=== PATIENT | male | born 1970 | race Caucasian/White ===

== ENCOUNTER 2021-09-03 11:35 | Emergency (ER) | payer OTHER, SELFPAY ==
[2021-09-03 11:37] VITALS: BP 149/84; PULSE 69; RESP 18; TEMP 36.8; O2SAT 98; BMI 20.5
[2021-09-03 12:16] LABS: Microscopic, Urine URINE MICROSCOPIC (MICROSCOPIC)
[2021-09-03 12:18] LABS: Basophils # 0.2 K/mm3 (0-0.2); Eosinophils # 0.2 K/mm3 (0.0-0.4); Eosinophils % 1.3 % (0.1-12.0); Hematocrit 43.8 % (42.0-52.0); Hemoglobin 13.8 g/dL (14.1-18.0); Lymphocytes # 2.4 K/mm3 (0.7-4.5); Lymphocytes % 15.8 % (10-50); Mean Corpuscular HGB Conc 31.6 g/dL (31.8-35.4); Mean Corpuscular Hemoglobin 32.5 pg (27.0-31.2); Mean Corpuscular Volume 102.7 fl (80-94); Mean Platelet Volume 7.7 fl (7.4-10.4); Monocytes # 0.4 K/mm3 (0.1-1.0); Monocytes % 2.5 % (1.7-9.3); Neutrophils # 12.2 K/mm3 (1.8-7.8); Neutrophils % 79.4 % (37.0-80.0); Platelet Count 402 K/mm3 (142-424); Red Blood Count 4.26 M/mm3 (4.60-6.20); Red Cell Distribution Width 13.4 % (11.5-17.5); White Blood Count 15.4 K/mm3 (4.8-10.8)
[2021-09-03 12:21] LABS: Chloride 106 mmol/L (98-107); Potassium 3.6 mmoL/L (3.5-5.1); Sodium 140 mmol/L (136-145)
[2021-09-03 12:23] LABS: Blood Urea Nitrogen 13 mg/dl (9-20); Creatinine Clearance Estimated 83 mL/min (50-200); Estimated Glomerular Filt Rate 89 ml/min (>60); GFR (African American) 107 ML/MIN (>60)
[2021-09-03 12:24] LABS: Alanine Aminotransferase 24 U/L (12-78); Albumin Level 4.3 g/dl (3.5-5.0); Albumin/Globulin Ratio 1.5 (1.1-1.8); Alkaline Phosphatase 67 U/L (38-126); Anion Gap 11.6 mEq/L (5-15); Aspartate Amino Transferase 28 U/L (17-59); Bilirubin,Total 0.4 mg/dl (0.2-1.3); Calcium 8.1 mg/dl (8.4-10.2); Carbon Dioxide 26 mmol/L (22.0-30.0); Globulin 2.8 g/dL (1.3-3.2); Glucose 136 mg/dl (74-100); Total Protein,Serum 7.1 g/dl (6.3-8.2)
[2021-09-03 12:28] LABS: Appearance,Urine CLEAR (Clear); Bilirubin,Urine Negative (Negative); Blood, Urine Negative (Negative); Color,Urine YELLOW (Yellow); Glucose,Urine (UA) Negative (Negative); Ketones,Urine Negative (Negative); Leukocyte Esterase,Urine Negative (Negative); Nitrate,Urine Negative (Negative); Protein,Urine Negative (Negative); Specific Gravity, Urine <= 1.005 (1.005-1.030); Urobilinogen,Urine 0.2 EU/dl (0.2)
[2021-09-03 12:43] LABS: MANUAL DIFFERENTIAL MANUAL DIFFERENTIAL (MANUAL DIFF)
--- NOTE | 2021-09-03 13:54 | US_ITS ---
FINAL REPORT CLINICAL HISTORY: abd pain; exam limited due to patient not NPO, [place] at [facility] [place] [facility] 3.5 hours before exam FINDINGS: ULTRASOUND RIGHT UPPER QUADRANT Sonographic imaging of the right upper quadrant was obtained. Note is made that the patient was not NPO and ate 3 in a half hour prior to the exam. The pancreas is partially obscured. The liver is unremarkable. There is no evidence of gallstones. There gallbladder wall measures at the upper limits of normal but is likely accentuated due to an incompletely distended gallbladder. There is no biliary ductal dilatation. The common duct is normal at 1 mm. Limited images of the right kidney are unremarkable. IMPRESSION: Gallbladder wall is at the upper limits of normal which is likely accentuated due to incomplete distention of the gallbladder. Reviewed, Interpreted and Dictated by Jakob Clinton MD Transcribed by Jennifer Hendrickson Authenticated by Jakob Clinton MD on 09/03/2021 04:26:51 PM [facility]
--- NOTE | 2021-09-03 13:58 | PC.NURSE ---
Notified Rad of RUQ U/S order
--- NOTE | 2021-09-03 14:08 | PC.NURSE ---
patient to radiology with polytechnic registrar
--- NOTE | 2021-09-03 15:40 | PC.NURSE ---
ED MD at for update on POC
[2021-09-03 15:45] LABS: Eosinophils % 2 % (0-3); Lymphocytes % 16 % (10-50); Macrocytosis 1+; Monocytes % 4 % (2-9); Neutrophils % 78 % (42-76); Platelet Estimate Normal; Total Cells Counted 100
--- NOTE | 2021-09-03 15:52 | HMH.EDGENADL ---
ED Disposition Clinical Impression: Epigastric abdominal pain Disposition: Home, Self-Care Condition on Discharge: Good Instructions: DI for Acute Abdominal Pain Prescriptions: Sucralfate [Carafate 1gm/10mL Susp] 10 ml PO ACHS #500 ml Transmission Status: Received by [facility] Omeprazole [Omeprazole 40mg Capsule] 40 mg PO DAILY #30 cap Transmission Status: Received by [facility] Ondansetron [Zofran 4mg ODT] 4 mg PO TIDP PRN #12 tab PRN Reason: Nausea And Vomiting Transmission Status: Received by [facility] Referrals: Cameron Treadwell MD [Primary Care Provider] - Forms: Work/School Release - Critical Care Critical Care Time: No Attestation: On 09/03/21, the high probability of a clinically significant, sudden or life threatening deterioration of the following system(s) required my full and direct attention, intervention and personal management. The time I documented below is in addition to time spent performing reported procedures but includes the following listed in this critical care notation. Medical Decision Making - Rizwan Inquiry Pt receiving controlled substance: No Vital Signs: 09/03/21 11:37 09/03/21 16:09 Temperature 98.3 F 98.3 F Temperature Source Oral Pulse Rate 79 Pulse Rate [Left Radial] 69 Respiratory Rate 18 18 Blood Pressure 127/84 Blood Pressure [Left Arm] 149/84 H Blood Pressure Mean [Left Arm] 105 Blood Pressure Source [Left Arm] Automatic Cuff Blood Pressure Position [Left Arm] Sitting 02 Sat by Pulse Oximetry 98 Oxygen Delivery Method Room Air - Lab Data Lab Results 09/03/21 12:03: Urine Color Yellow, Urine Appearance Clear, Urine pH 6.0, Ur Specific [place] <= 1.005, Urine Protein Negative, Urine Glucose (UA) Negative, Urine Ketones Negative, Urine Blood Negative, Urine Nitrate Negative, Urine Bilirubin Negative, Urine Urobilinogen 0.2, Ur Leukocyte Esterase Negative, Urine RBC None, Urine WBC None, Ur Squamous Epith Cells None, Urine Bacteria None 09/03/21 12:10: WBC 15.4 H, RBC 4.26 L, Hgb 13.8 L, Hct 43.8, MCV 102.7 H, MCH 32.5 H, MCHC 31.6 L, RDW 13.4, Plt Count 402, MPV 7.7, Neut % (Auto) 79.4, Lymph % (Auto) 15.8, Sutton % (Auto) 2.5, Eos % (Auto) 1.3, Baso % (Auto) 1.0, Neut # (Auto) 12.2 H, Lymph # (Auto) 2.4, Sutton # (Auto) 0.4, Eos # (Auto) 0.2, Baso # (Auto) 0.2, Total Counted 100, Neutrophils % (Manual) 78 H, Lymphocytes % (Manual) 16, Monocytes % (Manual) 4, Eosinophils % (Manual) 2, Platelet Estimate Normal, Macrocytosis 1+ 09/03/21 12:10: Sodium 140, Potassium 3.6, Chloride 106, Carbon Dioxide 26, Anion Gap 11.6, BUN 13, Creatinine 0.90, Estimated Creat Clear 83, Estimated GFR 89, Est GFR ( Amer) 107, Glucose 136 H, Calcium 8.1 L, Total Bilirubin 0.4, AST 28, ALT 24, Alkaline Phosphatase 67, Total Protein 7.1, Albumin 4.3, Globulin 2.8, Albumin/Globulin Ratio 1.5 Result diagrams: 09/03/21 12:10 09/03/21 12:10 Orders (Tests/Meds): ED MEDICATIONS Discontinued Medications Generic Name Dose Route Start Last Admin Trade Name Freq PRN Reason Stop Dose Admin Belladonna Alkaloids 60 ml 09/03/21 13:55 09/03/21 13:59 Gi Cocktail 60ml Udc PO 09/03/21 13:56 60 ml ONCE ONE Administration Sodium Chloride 10 ml 09/03/21 12:02 Sodium Chloride 0.9% 10ml Flush Syringe IV 10/03/21 12:01 NEEDED PRN Maintain IV Site Medical Decision Narrative: Patient is a 51-year-old male with history of kidney stones presents the ED today for epigastric right upper quadrant vomiting. Patient is well-appearing on initial evaluation, no acute distress, vital signs within normal limits and stable. We have ordered right upper quadrant ultrasound for further evaluation, although patient symptoms are reflux-like in nature, with this burning epigastric pain. Patient not endorsing any other significant symptoms of chest pain or shortness of breath at this time. We will further work-up with CBC CMP as well.
--- NOTE | 2021-09-03 15:57 | PC.NURSE ---
ED MD at for update on POC
[2021-09-03 16:09] VITALS: BP 127/84; PULSE 79; RESP 18; TEMP 36.8; O2SAT 98
== END 2021-09-03 16:10 | disposition home or self-care (01) ==
PROVIDERS: Emergency Provider Student in an Organized Health Care Education/Training Program; PCP Emergency Medicine
DX: R10.13 Epigastric pain (principal); R10.11 Right upper quadrant pain; F17.210 Nicotine dependence, cigarettes, uncomplicated
CPT/HCPCS: 76705; 80053; 81001; 85007; 85025; 99284

== ENCOUNTER → 2021-10-08 08:28 | Outpatient (CLI) | payer OTHER, SELFPAY ==
--- NOTE | 2021-10-08 08:29 | US_ITS ---
FINAL REPORT CLINICAL HISTORY: abd pain COMPARISON: September 03, 2021 FINDINGS: ULTRASOUND RIGHT UPPER QUADRANT Sonographic imaging of the right upper quadrant was obtained. The pancreas is partially obscured. The liver is unremarkable. There is no evidence of gallstones. There is no gallbladder wall thickening. There is no biliary ductal dilatation. The common duct is normal at 2 mm. There are 2 simple cysts within the right kidney measuring up to 2.1 cm. IMPRESSION: 2 right renal cysts. Otherwise unremarkable exam. Reviewed, Interpreted and Dictated by Jakob Clinton MD Transcribed by Jennifer Hendrickson Authenticated by Jakob Clinton MD on 10/08/2021 10:31:45 AM [facility]
== END ==
PROVIDERS: PCP Emergency Medicine; Visit Provider Nurse Practitioner Family
DX: R10.13 Epigastric pain (principal)
CPT/HCPCS: 76705

== ENCOUNTER → 2021-10-15 15:57 | Outpatient (CLI) | payer OTHER, SELFPAY | PROVIDERS: Visit Provider Internal Medicine | DX: Z01.812 Encounter for preprocedural laboratory examination (principal); Z11.52 Encounter for screening for COVID-19 | CPT/HCPCS: C9803; U0003; U0005 ==

== ENCOUNTER 2021-10-17 09:05 | Day surgery (SDC) | payer OTHER, SELFPAY ==
[2021-10-15 09:23] VITALS: BMI 20.5
[2021-10-17 09:35] VITALS: BP 136/93; PULSE 68; RESP 18; TEMP 36.6; O2SAT 98
[2021-10-17 10:48] VITALS: O2SAT 98
--- NOTE | 2021-10-17 10:55 | HMH.SCOPE ---
- Procedure: Date: 10/17/21 Patient Date of :: 1970 Procedure Performed:: EGD Indications:: The patient is a 51 year old with abdominal pain. RUQ ultrasound showed normal appearing gallbladder. The patient reports resolution of abdominal pain symptom. Performing Provider:: Anthony Mckinney MD Referring Provider:: Cameron Treadwell MD Sedation:: See RN notes Procedure:: The gastroscope was gently passed through the incisoral orifice into the oral cavity and under direct visualization the esophagus was intubated. The endoscope was passed down the esophagus, through the stomach, and into the duodenum. Color, texture, mucosa, and anatomy of the esophagus, stomach, and duodenum were carefully examined with the scope. Findings:: Oropharynx: normal Esophagus: LA Class A esophagitis of distal esophagus. Few small white mucosal lesions of mid esophagus that mostly irrigated off. Biopsies obtained in distal and mid esophagus EG Junction: measured at 40 cm Cardia: normal Fundus: normal Body: Minimal gastritis. Biopsy obtained Antrum: Minimal gastritis. Biopsy obtained Duodenal bulb: normal Duodenum (second and third portion): normal Recommendations:: Await pathology results Recommend prilosec 20 mg once daily for 8 weeks, then take as needed Complications:: None Estimated blood obtained (mL): 0
[2021-10-17 10:58] VITALS: BP 125/80; PULSE 82; RESP 18; TEMP 36.4; O2SAT 89
--- NOTE | 2021-10-17 10:59 | HMH.ANESCL ---
[facility] Anesthesia Checklist - Structural Data Admitted From: Home Planned Operative Procedure/s: egd Consent for Planned Operative Procedure(s) Verified: Yes - Airway Assessment C-Spine Mobility Assessed: Yes TMJ Mobility Assessed: Yes Dentition: Poor Dentition - Neurological Assessment Level of Consciousness: Awake, Alert, Appropriate - Anesthesia Plan Anesthesia Risk discussed: Yes Anesthesia Plan: Verified ASA Class: II Anesthesia Type: [facility] History I have reviewed the patient's past medical history: Yes Medical History: Reports:: Kidney Stones Denies:: Cancer, Diabetes Mellitus Type 1, Diabetes Mellitus Type 2, Internal Pacemaker, MRSA, Seizures *Have you ever received a pneumonia vaccine?: Yes *Have you received a flu vaccine this season?: Yes Anesthesia experience/problems:: none Other Surgeries: Yes: No Previous Surgery. No: Pacemaker Amputation: No Fractures: No - *Social History Last grade of school completed: 11th or 12th Smoking Status: Current every day smoker Tobacco Type: cigarettes # Packs/Day (cigarettes): 1 Alcohol Intake: never Substance Use Type: denies use *Occupational Status:: employed Housing: house Household Members: family *Travel in the last 8 weeks: None Family Hx:: Cancer, Asthma
[2021-10-17 11:08] VITALS: BP 114/78; PULSE 83; RESP 16; O2SAT 97
[2021-10-17 11:18] VITALS: BP 120/78; PULSE 65; RESP 16; O2SAT 98
[2021-10-17 11:28] VITALS: BP 142/63; PULSE 63; RESP 16; TEMP 36.4; O2SAT 98
== END 2021-10-17 11:35 | disposition home or self-care (01) ==
LOC: OUTP 09:07
PROVIDERS: PCP Emergency Medicine; Visit Provider Internal Medicine
PROC: 0DJ08ZZ Inspection of Upper Intestinal Tract, Via Natural or Artificial Opening Endoscopic (ICD-10-PCS; CPT 43235; principal; 2021-10-17 10:00)
DX: K20.80 Other esophagitis without bleeding (principal); K29.70 Gastritis, unspecified, without bleeding; Z87.442 Personal history of urinary calculi; Z80.9 Family history of malignant neoplasm, unspecified; Z82.5 Family history of asthma and other chronic lower respiratory diseases
CPT/HCPCS: 43239

== ENCOUNTER → 2021-11-28 09:33 | Outpatient (CLI) | payer OTHER, SELFPAY ==
--- NOTE | 2021-11-28 09:33 | NM_ITS ---
FINAL REPORT CLINICAL HISTORY: abd pain 10:30am 8.83 MCI TC CHOLETEC 1.3 MCG CCK FINDINGS: Sequential anterior projection images of the abdomen were obtained after the intravenous injection of 8.823 mCi technetium 99m Choletec. There is normal uptake of radiotracer by the liver. The bile ducts are visualized by 10 minutes. Gallbladder activity is seen by 20 minutes. Bowel activity is noted by 15 minutes. After 1 hour, 1.3 ?g of CCK was injected intravenously for calculation of gallbladder ejection fraction. The gallbladder ejection fraction is 88 %, which is within normal limits. IMPRESSION: No evidence of cystic duct or bile duct obstruction. Normal gallbladder ejection fraction of 88 %. Reviewed, Interpreted and Dictated by Christiano Sanderson III, MD Transcribed by Magdi Julian Authenticated and [facility]
--- NOTE | 2021-11-28 09:33 | CT_ITS ---
FINAL REPORT CLINICAL HISTORY: abd pain, VOMITING COMPARISON: May 20, 2017 FINDINGS: Axial CT images of the abdomen and pelvis were obtained without intravenous contrast. Coronal reformatted images were also obtained.This study was performed with techniques to keep radiation doses as low as reasonably achievable (ALARA). Individualized dose reduction techniques using automated exposure control or adjustment of mA and/or kV according to the patient's size were employed. Abdomen: The lung bases are clear. There are several less than 3 mm nonobstructing renal stones bilaterally. There are no ureteral stones. There is no hydronephrosis. The gallbladder is present. The liver, spleen and pancreas have an unremarkable, unenhanced appearance. There is a 31 mm mass in the upper pole of the left kidney. There is a 26 mm mass in the medial right kidney the previously measured 15 mm. There is a smaller mass in the lower pole the right kidney. These masses cannot be accurately characterized without contrast but may represent cysts. No inflammatory process is identified. Pelvis: Images of the pelvis reveal no evidence of ureteral dilation or ureteral stone.No mass or abnormal fluid collection is identified. The appendix is partially visualized and normal where seen. There are small bilateral inguinal hernias containing fat. There is a moderate amount of retained stool. 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 IMPRESSION: Nephrolithiasis without ureteral stone or hydronephrosis. Bilateral renal masses cannot be accurately characterized without contrast but may represent cysts. Moderate retained stool. Reviewed, Interpreted and Dictated by Christiano Sanderson III, MD Transcribed by Magdi Julian Authenticated and [facility]
--- NOTE | 2021-11-28 10:41 | HMH.ITSHM ---
Current Home Medications as stated by this patient Sandip Sauer JR or office services representative. []FAMOTIDINE
== END ==
PROVIDERS: PCP Nurse Practitioner Family; Visit Provider Nurse Practitioner Family
DX: R10.13 Epigastric pain (principal); R10.31 Right lower quadrant pain
CPT/HCPCS: 74176; 78227; A9537; J2805

== ENCOUNTER 2023-02-18 09:33 | Emergency (ER) | payer OTHER, SELFPAY ==
[2023-02-18 09:36] VITALS: BP 147/94; PULSE 66; RESP 18; TEMP 36.5; O2SAT 99; BMI 21.4
[2023-02-18 10:02] VITALS: BP 155/90; PULSE 62; RESP 18; O2SAT 98
--- NOTE | 2023-02-18 10:05 | PC.NURSE ---
Dr. Villatoro at [facility] for pt eval
--- NOTE | 2023-02-18 10:14 | HMH.EDGENADL ---
Discharge Plan Disposition Patient Disposition: Home, Self-Care Prescriptions Prescriptions: New ibuprofen 600 mg tablet 600 mg PO Q8H PRN (Reason: pain) 7 Days Qty: 21 0RF cyclobenzaprine 5 mg tablet 5 mg PO TID PRN (Reason: muscle spasm) 5 Days Qty: 15 0RF No Action prednisone 20 mg tablet 20 mg PO BID Qty: 9 0RF Rx Instructions: 1 tablet twice daily for 3 days then 1 tablet daily for 3 days acetaminophen-codeine 300-30 mg tablet 1 tab PO TID PRN (Reason: pain) Qty: 10 0RF Referrals Follow up/Referrals: Cameron Treadwell MD [Primary Care Provider] - See instructions Activity Restrictions/Add. 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 Please return with any lower extremity paralysis numbness between your legs urinary or bowel incontinence or other symptoms that we discussed. Please take it easy until your symptoms are improving. Clinical Impressions Clinical Impression: Lumbosacral strain Stand Alone Forms Stand Alone Forms: Work/School Release Instructions Patient Instructions: DI for Low Back Pain Discharge ED Provider: Mary Villatoro General Adult HPI General Chief complaint: Back Pain/Injury Stated complaint: back pain for 5 days, unknown origin, abd pain Time Seen by Provider: 02/18/23 10:04 Mode of Arrival: Ambulatory Source of Information: Patient Limitations: No Limitations Description of Symptoms (Recalled from ER Triage Doc. by RN): Patient reports that his left lower back pain down his leg. States he may have over lifted at work. History of Present Illness HPI narrative: 52-year-old male here with right lower back pain. States it is localized off to the midline of the lumbar spine just above his iliac crest. Denies any urinary or bowel incontinence any urinary retention any lower extremity paralysis any saddle anesthesia any history of cancer or drug use or fever. States he was lifting heavily recently and he feels that he strained his back. Related Data Previous Rx's Medication Instructions Recorded acetaminophen 300 mg-codeine 30 mg 1 tab PO TID PRN pain #10 tabs 07/29/22 tablet prednisone 20 mg tablet 20 mg PO BID #9 tabs 07/29/22 cyclobenzaprine 5 mg tablet 5 mg PO TID PRN muscle spasm 5 02/18/23 days #15 tabs ibuprofen 600 mg tablet 600 mg PO Q8H PRN pain 7 days #21 02/18/23 tabs Allergies Allergy/AdvReac Type Severity Reaction Status Date / Time No Known Allergies Allergy Verified 07/29/22 08:54 [facility] Disclaimer: The information contained in this section may have been updated after the patient was seen, as this information can be updated by other users. Social History Smoking Status: Current every day smoker tobacco type: cigarettes packs per day: 1 alcohol intake: never substance use type: denies use current occupational status: employed Travel in the last 8 weeks: None household members: family housing: house current occupational exposures/hazards: No caffeine: Yes ROS Obtained: Yes All systems reviewed & no additional complaints except as documented Physical Exam General General appearance: alert Respiratory Respiratory exam: Present normal lung sounds bilaterally; Absent respiratory distress Cardiovascular Cardiovascular exam: Present regular rate; Absent tachycardia Back Exam Back exam: Present tenderness (Tenderness in the right lumbosacral region off to the midline no midline tenderness no lower extremity weakness saddle anesthesia or sensory changes) Neurological Exam Neurological exam: Present alert and oriented X3 Medical Decision Making Rizwan Inquiry Pt receiving controlled substance: No Vital Signs: 02/18/23 09:36 Temperature 97.7 F Temperature Source Oral Pulse Rate [Radial] 66 Respiratory Rate 18 Blood Pressure [Right Arm] 147/94 H Blood P
[2023-02-18 10:18] VITALS: BP 155/90; PULSE 63; RESP 18; TEMP 36.7; O2SAT 99
== END 2023-02-18 10:18 | disposition home or self-care (01) ==
PROVIDERS: Emergency Provider Student in an Organized Health Care Education/Training Program; PCP Emergency Medicine
DX: S33.5XXA Sprain of ligaments of lumbar spine, initial encounter (principal); F17.210 Nicotine dependence, cigarettes, uncomplicated; X50.0XXA Overexertion from strenuous movement or load, initial encounter
CPT/HCPCS: 99283

== ENCOUNTER → 2023-03-05 01:10 | Outpatient (CLI) | payer OTHER, SELFPAY ==
[2023-03-05 19:28] LABS: Basophils % 0.3 % (0.1-2.0); Eosinophils # 0.3 K/mm3 (0.0-0.4); Eosinophils % 1.9 % (0.1-12.0); Hematocrit 43.3 % (42.0-52.0); Hemoglobin 13.4 g/dL (14.1-18.0); Lymphocytes # 2.8 K/mm3 (0.7-4.5); Lymphocytes % 21.5 % (10-50); Mean Corpuscular Hemoglobin 31.2 pg (27.0-31.2); Mean Corpuscular Volume 100.5 fl (80-94); Mean Platelet Volume 8.9 fl (7.4-10.4); Monocytes # 0.5 K/mm3 (0.1-1.0); Monocytes % 3.5 % (1.7-9.3); Neutrophils # 9.6 K/mm3 (1.8-7.8); Neutrophils % 72.8 % (37.0-80.0); Platelet Count 374 K/mm3 (142-424); Red Blood Count 4.31 M/mm3 (4.60-6.20); Red Cell Distribution Width 12.9 % (11.5-17.5); White Blood Count 13.1 K/mm3 (4.8-10.8)
[2023-03-05 19:34] LABS: Alanine Aminotransferase 16 U/L (12-78); Albumin Level 4.8 g/dl (3.5-5.0); Albumin/Globulin Ratio 1.5 (1.1-1.8); Alkaline Phosphatase 70 U/L (38-126); Anion Gap 12.2 mEq/L (5-15); Aspartate Amino Transferase 32 U/L (17-59); Bilirubin,Total 0.4 mg/dl (0.2-1.3); Blood Urea Nitrogen 14 mg/dl (9-20); Calcium 8.7 mg/dl (8.4-10.2); Carbon Dioxide 29 mmol/L (22.0-30.0); Chloride 104 mmol/L (98-107); Chol/HDL Ratio 4.6 (1-3.5); Cholesterol 214 mg/dl (140-200); Estimated Glomerular Filt Rate 78 ml/min (>60); GFR (African American) 95 ML/MIN (>60); Globulin 3.1 g/dL (1.3-3.2); Glucose 76 mg/dl (74-100); HDL Cholesterol 47 mg/dl (40-60); Lipase 73 U/L (23-300); Potassium 4.2 mmoL/L (3.5-5.1); Sodium 141 mmol/L (136-145); Total Protein,Serum 7.9 g/dl (6.3-8.2); Triglycerides 141 mg/dl (30-150); VLDL Cholesterol 28 mg/dL (0-40)
[2023-03-05 19:46] LABS: Direct LDL Cholesterol 120.84 mg/dL (100-129)
[2023-03-05 19:51] LABS: 25-OH Vitamin D, Total 43.8 ng/mL (30-100)
[2023-03-05 20:05] LABS: Prostate Specific Ag Screen 1.4 ng/ml (0.0-4.0); Thyroid Stimulating Hormone 0.77 uIU/mL (0.465-4.68)
== END ==
PROVIDERS: PCP Nurse Practitioner Family; Visit Provider Nurse Practitioner Family
DX: R10.13 Epigastric pain (principal)
CPT/HCPCS: 80053; 80061; 82306; 83690; 84443; 85025; 87086; G0103

== ENCOUNTER 2023-03-14 08:08 | Emergency (ER) | payer OTHER, SELFPAY ==
[2023-03-14 08:10] VITALS: BP 133/95; PULSE 69; RESP 19; TEMP 36.7; O2SAT 99; BMI 21.2
--- NOTE | 2023-03-14 08:31 | EXP.UTC ---
Discharge Plan Disposition Patient Disposition: Home, Self-Care Condition: Good Prescriptions Prescriptions: New oxycodone 5 mg tablet 5 mg PO Q8H PRN (Reason: pain) Qty: 10 0RF polyethylene glycol 3350 [Miralax] 17 gram/dose powder 17 g PO DAILY 30 Days Qty: 510 0RF sennosides [senna] 8.6 mg tablet 8.6 mg PO DAILY Qty: 30 0RF pantoprazole 40 mg tablet,delayed release (DR/EC) 40 mg PO DAILY Qty: 30 0RF ondansetron 4 mg tablet,disintegrating 4 mg PO Q8H Qty: 12 0RF Referrals Follow up/Referrals: Meera Park APRN [Staff Physician] - 04/10/23 4:00 pm Cameron Treadwell MD [Primary Care Provider] - See instructions Activity Restrictions/Add. Instructions Additional Instructions/Restrictions: You were evaluated in the emergency department today. Please machine pecan picker your prescriptions. The MiraLAX and senna you will take daily to help with constipation. The pantoprazole you will take daily to help with stomach acid and gastric irritation. The Zofran is for you to take as needed for nausea and vomiting. The oxycodone is for you to take as needed for severe abdominal pain. Do not drive or operate heavy machinery while taking narcotic pain medication. It is important to keep her follow-up with gastroenterology. I recommend following up with your primary care provider over the next 2 days as well. Return to the emergency department for any new or worsening symptoms, such as fevers, chills, inability to tolerate oral intake, or other concerns. Clinical Impressions Clinical Impression: Constipation, Colitis Instructions Patient Instructions: DI for Constipation, DI for Acute Abdominal Pain, DI for Colitis Discharge ED Provider: Randa Costa [facility] General Chief complaint: Abdominal Pain Stated complaint: stomach/back pain, vomiting Mode of Arrival: Ambulatory Source of Information: Patient Limitations: No Limitations Time Seen by Provider: 03/14/23 08:31 Description of Symptoms (Recalled from Triage Doc. by RN): PATIENT C/O RIGHT SIDED ABDOMINAL PAIN, NAUSEA AND VOMITING THAT HAS BEEN INTERMITTEN X 2-3 YEARS. HE STATES SYMPTOMS ARE WORSE WITH EATING AND DRINKING. REPORTS NORMAL BOWEL MOVEMENTS HEENT Symptoms (Recalled from RN notes): No Resp Symptoms (Recalled from RN notes): No Skin Symptoms (Recalled from RN notes): No MS Symptoms (Recalled from RN notes): No Functional Status (Recalled from RN notes): WNL History of Present Illness Provider Complaint: Patient states that for the last 2-3 yrs he has been having right side abdominal pain that goes into his back and will get worse after eating and make him vomit on and off that is worse at times States that he has been seen several times for it and has been seen in [place] ED, PCP and ED here and no one has found anything States that last night he was having pain again and was not able to go to work this morning States that he has been having normal bowel movements States that this has been ongoing and he thinks he needs an MRI or something to try to find out what is going on with his stomach States that last night the pain was worse and kept him up most of the night and this morning it doubled him over and this morning the pain is still bad Related Data Previous Rx's Medication Instructions Recorded ondansetron 4 mg disintegrating 4 mg PO Q8H #12 tabs 03/14/23 tablet oxycodone 5 mg tablet 5 mg PO Q8H PRN pain #10 tabs 03/14/23 pantoprazole 40 mg tablet,delayed 40 mg PO DAILY #30 tabs 03/14/23 release polyethylene glycol 3350 17 17 g PO DAILY 30 days #510 grams 03/14/23 gram/dose oral powder (Miralax) sennosides 8.6 mg tablet (senna) 8.6 mg PO DAILY #30 tabs 03/14/23 Allergies Allergy/AdvReac Type Severity Reaction Status Date / Time No Known Allergies Allergy Verified 03/05/23 13:22 Worker's Comp Is this a Worker's Comp case?: No [facility] Disclaimer: The information contained in this section may have been updated after t
--- NOTE | 2023-03-14 08:48 | PC.NURSE ---
pt arrived to room 10 from [facility]
[2023-03-14 08:51] VITALS: BP 143/86; PULSE 63; RESP 18; TEMP 36.7; O2SAT 99; BMI 21.6
--- NOTE | 2023-03-14 08:56 | CT_ITS ---
FINAL REPORT TECHNIQUE: Thin section axial images were obtained through the abdomen after intravenous contrast. Reconstruction images were obtained from the axial data. Exam was performed using dose reduction techniques. CLINICAL HISTORY: chronic R flank/RLQ pain, worse today COMPARISON: 11/28/2021 FINDINGS: The lung bases are clear. There are several subcentimeter hypodense liver lesions which have not significantly changed and are favored to represent cysts. The gallbladder is present. The spleen, adrenal glands, and pancreas are unremarkable. There are bilateral hypodense renal lesions which are stable and likely represent cysts. There is no hydronephrosis. There is a nonobstructing stone in the lower pole of the right kidney which is unchanged. Abdominal GI tract is without acute abnormality. There is no abdominal lymphadenopathy or ascites. The pelvic solid organs are unremarkable. The appendix is normal. There is mild wall thickening of the descending colon, favor incomplete distention. Mild colitis is not excluded.. There is no pelvic lymphadenopathy or ascites. No acute osseous abnormalities identified. IMPRESSION: Long segment distal colon wall thickening, favor incomplete distention. Mild colitis is not excluded. Nonobstructing right renal stone. Reviewed, Interpreted and Dictated by Karina Mccrary MD Transcribed by Shira Noble Authenticated and [facility]
--- NOTE | 2023-03-14 08:58 | HMH.EDGENADL ---
Discharge Plan Disposition Patient Disposition: Home, Self-Care Condition: Good Prescriptions Prescriptions: New oxycodone 5 mg tablet 5 mg PO Q8H PRN (Reason: pain) Qty: 10 0RF polyethylene glycol 3350 [Miralax] 17 gram/dose powder 17 g PO DAILY 30 Days Qty: 510 0RF sennosides [senna] 8.6 mg tablet 8.6 mg PO DAILY Qty: 30 0RF pantoprazole 40 mg tablet,delayed release (DR/EC) 40 mg PO DAILY Qty: 30 0RF ondansetron 4 mg tablet,disintegrating 4 mg PO Q8H Qty: 12 0RF Referrals Follow up/Referrals: Meera Park APRN [Staff Physician] - 04/10/23 4:00 pm Cameron Treadwell MD [Primary Care Provider] - See instructions Activity Restrictions/Add. Instructions Additional Instructions/Restrictions: You were evaluated in the emergency department today. Please picker packer your prescriptions. The MiraLAX and senna you will take daily to help with constipation. The pantoprazole you will take daily to help with stomach acid and gastric irritation. The Zofran is for you to take as needed for nausea and vomiting. The oxycodone is for you to take as needed for severe abdominal pain. Do not drive or operate heavy machinery while taking narcotic pain medication. It is important to keep her follow-up with gastroenterology. I recommend following up with your primary care provider over the next 2 days as well. Return to the emergency department for any new or worsening symptoms, such as fevers, chills, inability to tolerate oral intake, or other concerns. Clinical Impressions Clinical Impression: Constipation, Colitis Instructions Patient Instructions: DI for Constipation, DI for Acute Abdominal Pain, DI for Colitis Discharge ED Provider: Randa Costa General Adult HPI General Chief complaint: Abdominal Pain Stated complaint: stomach/back pain, vomiting Time Seen by Provider: 03/14/23 08:31 Mode of Arrival: Ambulatory Source of Information: Patient Limitations: No Limitations Description of Symptoms (Recalled from ER Triage Doc. by RN): PATIENT C/O RIGHT SIDED ABDOMINAL PAIN, NAUSEA AND VOMITING THAT HAS BEEN INTERMITTEN X 2-3 YEARS. HE STATES SYMPTOMS ARE WORSE WITH EATING AND DRINKING. REPORTS NORMAL BOWEL MOVEMENTS. History of Present Illness HPI narrative: This patient is a 52-year-old male with extensive smoking history, lumbosacral pain with lumbar radiculopathy, and chronic abdominal pain presenting to the emergency department for acute worsening of the abdominal pain. He states that it has been intermittent for the last 2 to 3 years. It is located in the right flank/right lower quadrant and does not radiate. He also notes nonbloody nonbilious emesis associated with this. He has worsening symptoms with attempts at eating and drinking. He denies any fevers, chills, chest pain, shortness of breath, cough, congestion, change in bowel movements, melena, hematochezia, dysuria, polyuria, or other concerns. He reports that he has been evaluated multiple times for this in the past and has had a lot of extensive testing done. On medical record review, patient has had CT scan, endoscopy, and ultrasound. The CT showed renal cysts and nephrolithiasis but I do not find any other documentation of any acute abnormalities otherwise. Related Data Previous Rx's Medication Instructions Recorded ondansetron 4 mg disintegrating 4 mg PO Q8H #12 tabs 03/14/23 tablet oxycodone 5 mg tablet 5 mg PO Q8H PRN pain #10 tabs 03/14/23 pantoprazole 40 mg tablet,delayed 40 mg PO DAILY #30 tabs 03/14/23 release polyethylene glycol 3350 17 17 g PO DAILY 30 days #510 grams 03/14/23 gram/dose oral powder (Miralax) sennosides 8.6 mg tablet (senna) 8.6 mg PO DAILY #30 tabs 03/14/23 Allergies Allergy/AdvReac Type Severity Reaction Status Date / Time No Known Allergies Allergy Verified 03/05/23 13:22 [facility] Disclaimer: The information contained in this section may have been updated after the patient was seen, as this in
[2023-03-14 09:06] LABS: Microscopic, Urine URINE MICROSCOPIC (MICROSCOPIC)
[2023-03-14 09:08] LABS: Appearance,Urine CLEAR (Clear); Bilirubin,Urine Negative (Negative); Blood, Urine Negative (Negative); Color,Urine YELLOW (Yellow); Glucose,Urine (UA) Negative (Negative); Ketones,Urine Negative (Negative); Leukocyte Esterase,Urine Negative (Negative); Nitrate,Urine Negative (Negative); Protein,Urine Negative (Negative); Specific Gravity, Urine 1.015 (1.005-1.030); Urobilinogen,Urine 0.2 EU/dl (0.2)
[2023-03-14 09:19] LABS: Bacteria,Urine Trace /lpf; Squamous Epithelial Cell,Urine Occasional #/hpf (0-5)
[2023-03-14 09:32] LABS: Lactic Acid 1.5 mmol/L (0.7-2.1)
[2023-03-14 09:33] LABS: Alanine Aminotransferase 27 U/L (12-78); Albumin Level 4.5 g/dl (3.5-5.0); Albumin/Globulin Ratio 1.4 (1.1-1.8); Alkaline Phosphatase 70 U/L (38-126); Anion Gap 12.1 mEq/L (5-15); Aspartate Amino Transferase 35 U/L (17-59); Bilirubin,Total 0.4 mg/dl (0.2-1.3); Blood Urea Nitrogen 15 mg/dl (9-20); Calcium 8.6 mg/dl (8.4-10.2); Carbon Dioxide 29 mmol/L (22.0-30.0); Chloride 103 mmol/L (98-107); Creatinine Clearance Estimated 86 mL/min (50-200); Estimated Glomerular Filt Rate 88 ml/min (>60); GFR (African American) 107 ML/MIN (>60); Globulin 3.3 g/dL (1.3-3.2); Glucose 103 mg/dl (74-100); Lipase 247 U/L (23-300); Potassium 4.1 mmoL/L (3.5-5.1); Sodium 140 mmol/L (136-145); Total Protein,Serum 7.8 g/dl (6.3-8.2)
[2023-03-14 09:39] LABS: Basophils # 0.1 K/mm3 (0-0.2); Basophils % 0.8 % (0.1-2.0); Eosinophils # 0.4 K/mm3 (0.0-0.4); Eosinophils % 4.4 % (0.1-12.0); Hematocrit 44.6 % (42.0-52.0); Hemoglobin 14.3 g/dL (14.1-18.0); Lymphocytes # 2.2 K/mm3 (0.7-4.5); Lymphocytes % 24.1 % (10-50); Mean Corpuscular HGB Conc 32.1 g/dL (31.8-35.4); Mean Corpuscular Hemoglobin 31.5 pg (27.0-31.2); Mean Corpuscular Volume 98.2 fl (80-94); Mean Platelet Volume 7.2 fl (7.4-10.4); Monocytes # 0.4 K/mm3 (0.1-1.0); Monocytes % 4.1 % (1.7-9.3); Neutrophils # 6.2 K/mm3 (1.8-7.8); Neutrophils % 66.7 % (37.0-80.0); Platelet Count 361 K/mm3 (142-424); Red Blood Count 4.54 M/mm3 (4.60-6.20); Red Cell Distribution Width 12.7 % (11.5-17.5); White Blood Count 9.3 K/mm3 (4.8-10.8)
--- NOTE | 2023-03-14 10:28 | PC.NURSE ---
rounded on pt nothing needed at this time,call light at bs
[2023-03-14 11:34] VITALS: BP 140/80; PULSE 65; RESP 16; TEMP 36.7; O2SAT 98
== END 2023-03-14 11:33 | disposition home or self-care (01) ==
LOC: UTC 08:11 → ER 08:45
PROVIDERS: Emergency Provider Emergency Medicine; PCP Emergency Medicine
DX: K52.9 Noninfective gastroenteritis and colitis, unspecified (principal); K59.00 Constipation, unspecified; R10.9 Unspecified abdominal pain; M54.16 Radiculopathy, lumbar region; F17.210 Nicotine dependence, cigarettes, uncomplicated
CPT/HCPCS: 74177; 80053; 81001; 83605; 83690; 85025; 96361; 96374; 96375; 99285; J0131; J2405; Q9967

== ENCOUNTER 2023-06-02 04:40 | Emergency (ER) | payer OTHER, SELFPAY ==
[2023-06-02 04:42] VITALS: BP 167/95; PULSE 79; RESP 18; TEMP 36.6; O2SAT 98; BMI 20.5
--- NOTE | 2023-06-02 05:11 | HMH.EDGENADL ---
Discharge Plan Disposition Patient Disposition: Home, Self-Care Condition: Good Prescriptions Prescriptions: New pantoprazole 40 mg tablet,delayed release (DR/EC) 40 mg PO DAILY Qty: 30 0RF Continued pantoprazole 40 mg tablet,delayed release (DR/EC) 40 mg PO DAILY Qty: 30 0RF No Action oxycodone 5 mg tablet 5 mg PO Q8H PRN (Reason: pain) Qty: 10 0RF polyethylene glycol 3350 [Miralax] 17 gram/dose powder 17 g PO DAILY 30 Days Qty: 510 0RF sennosides [senna] 8.6 mg tablet 8.6 mg PO DAILY Qty: 30 0RF ondansetron 4 mg tablet,disintegrating 4 mg PO Q8H Qty: 12 0RF Referrals Follow up/Referrals: Provider,Referral, MD [Primary Care Provider] - See instructions Clinical Impressions Clinical Impression: Abdominal pain Stand Alone Forms Stand Alone Forms: Work/School Release Instructions Patient Instructions: DI for Gastritis, DI for Acute Abdominal Pain Discharge ED Provider: Nimco Severino General Adult HPI General Chief complaint: Abdominal Pain Stated complaint: Stomach pain,vomiting Time Seen by Provider: 06/02/23 04:45 Mode of Arrival: Ambulatory Source of Information: Patient Limitations: No Limitations Description of Symptoms (Recalled from ER Triage Doc. 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 denies any new symptoms this am. History of Present Illness HPI narrative: 52-year-old male with previous medical history of chronic abdominal pain and tobacco use presenting with acute recurrence of his abdominal pain. Patient was in his usual state of health yesterday with no abdominal pain or other concerns. This morning he awoke approximately 1 hour prior to arrival and had black coffee and a cigarette and then began to have right upper quadrant abdominal pain and vomiting, nonbloody nonbilious. He says this is similar to his episodic abdominal pain that he has had in the past that has been worked up with endoscopy and CT scans with no specific causes found. On chart review endoscopy in 2021 showed mild gastritis and distal esophagus esophagitis and CT in 2022 for an episode of abdominal pain showed nonspecific colitis. He states he was told to take a stomach pill in the past but does not read well so did not want to take anything if he was not certain how it would affect him. Related Data Previous Rx's Medication Instructions Recorded ondansetron 4 mg disintegrating 4 mg PO Q8H #12 tabs 03/14/23 tablet oxycodone 5 mg tablet 5 mg PO Q8H PRN pain #10 tabs 03/14/23 pantoprazole 40 mg tablet,delayed 40 mg PO DAILY #30 tabs 03/14/23 release polyethylene glycol 3350 17 17 g PO DAILY 30 days #510 grams 03/14/23 gram/dose oral powder (Miralax) sennosides 8.6 mg tablet (senna) 8.6 mg PO DAILY #30 tabs 03/14/23 pantoprazole 40 mg tablet,delayed 40 mg PO DAILY #30 tabs 06/02/23 release Allergies Allergy/AdvReac Type Severity Reaction Status Date / Time No Known Allergies Allergy Verified 03/05/23 13:22 [facility] Disclaimer: The information contained in this section may have been updated after the patient was seen, as this information can be updated by other users. Social History Smoking Status: Current every day smoker tobacco type: cigarettes packs per day: 1 alcohol intake: never substance use type: denies use current occupational status: employed Travel in the last 8 weeks: None household members: family housing: house current occupational exposures/hazards: No caffeine: Yes ROS Obtained: Yes All systems reviewed & no additional complaints except as documented Physical Exam General General appearance: alert and in no apparent distress Head Head
[2023-06-02 05:16] LABS: Basophils # 0.1 K/mm3 (0-0.2); Eosinophils # 0.4 K/mm3 (0.0-0.4); Eosinophils % 3.8 % (0.1-12.0); Hematocrit 45.3 % (42.0-52.0); Hemoglobin 14.8 g/dL (14.1-18.0); Lymphocytes # 3.5 K/mm3 (0.7-4.5); Lymphocytes % 34.8 % (10-50); Mean Corpuscular HGB Conc 32.8 g/dL (31.8-35.4); Mean Corpuscular Hemoglobin 32.5 pg (27.0-31.2); Mean Corpuscular Volume 99.3 fl (80-94); Mean Platelet Volume 7.5 fl (7.4-10.4); Monocytes # 0.5 K/mm3 (0.1-1.0); Monocytes % 4.6 % (1.7-9.3); Neutrophils # 5.5 K/mm3 (1.8-7.8); Neutrophils % 55.7 % (37.0-80.0); Platelet Count 357 K/mm3 (142-424); Red Blood Count 4.56 M/mm3 (4.60-6.20); White Blood Count 9.9 K/mm3 (4.8-10.8)
[2023-06-02 05:18] LABS: Chloride 106 mmol/L (98-107)
[2023-06-02 05:19] LABS: Potassium 3.8 mmoL/L (3.5-5.1); Sodium 140 mmol/L (136-145)
[2023-06-02 05:21] LABS: Alanine Aminotransferase 19 U/L (12-78); Alkaline Phosphatase 69 U/L (38-126); Aspartate Amino Transferase 29 U/L (17-59); Bilirubin,Total 0.4 mg/dl (0.2-1.3); Blood Urea Nitrogen 19 mg/dl (9-20); Creatinine Clearance Estimated 67 mL/min (50-200); Estimated Glomerular Filt Rate 70 ml/min (>60); GFR (African American) 85 ML/MIN (>60)
[2023-06-02 05:22] LABS: Albumin Level 4.6 g/dl (3.5-5.0); Albumin/Globulin Ratio 1.4 (1.1-1.8); Anion Gap 12.8 mEq/L (5-15); Calcium 8.6 mg/dl (8.4-10.2); Carbon Dioxide 25 mmol/L (22.0-30.0); Globulin 3.2 g/dL (1.3-3.2); Glucose 115 mg/dl (74-100); Lipase 84 U/L (23-300); Total Protein,Serum 7.8 g/dl (6.3-8.2)
--- NOTE | 2023-06-02 05:24 | ECG_ITS ---
APPROVED REPORT Exam: Resting ECG HR:64 bpm ECG Measurements Heart Rate 64 AXES AL 147 P 69 QRSd 90 QRS 76 QT 381 T 75 QTc 390 Conclusion SINUS RHYTHM NORMAL ECG UNCONFIRMED REPORT Electronically signed by : Fer Pimentel MD 06/02/2023 14:44:48
[2023-06-02 06:18] LABS: Microscopic, Urine URINE MICROSCOPIC (MICROSCOPIC)
[2023-06-02 06:19] LABS: Appearance,Urine CLEAR (Clear); Bilirubin,Urine Negative (Negative); Blood, Urine TRACE-I (Negative); Color,Urine YELLOW (Yellow); Glucose,Urine (UA) Negative (Negative); Ketones,Urine Negative (Negative); Leukocyte Esterase,Urine Negative (Negative); Nitrate,Urine Negative (Negative); Protein,Urine Negative (Negative); Specific Gravity, Urine >= 1.030 (1.005-1.030); Urobilinogen,Urine 0.2 EU/dl (0.2)
[2023-06-02 06:24] LABS: Bacteria,Urine Trace /lpf; Squamous Epithelial Cell,Urine Occasional #/hpf (0-5); WBC,Urine Occasional #/hpf (0-3)
[2023-06-02 06:41] VITALS: BP 138/95; PULSE 65; RESP 18; TEMP 36.6; O2SAT 98
== END 2023-06-02 06:42 | disposition home or self-care (01) ==
PROVIDERS: Emergency Provider Emergency Medicine
DX: R10.11 Right upper quadrant pain (principal); F17.210 Nicotine dependence, cigarettes, uncomplicated; R11.2 Nausea with vomiting, unspecified
CPT/HCPCS: 80053; 81001; 83690; 85025; 93005; 99285

== ENCOUNTER 2023-08-04 07:02 | Emergency (ER) | payer OTHER, SELFPAY ==
[2023-08-04 07:04] VITALS: BP 159/97; PULSE 72; RESP 18; TEMP 36.7; O2SAT 99; BMI 20.5
--- NOTE | 2023-08-04 07:12 | PC.NURSE ---
Dr. Kumari at [facility] for pt eval
--- NOTE | 2023-08-04 07:19 | HMH.EDGENADL ---
Discharge Plan Disposition Patient Disposition: Home, Self-Care Condition: Good Prescriptions Prescriptions: No Action prochlorperazine maleate 10 mg tablet PO pantoprazole 40 mg tablet,delayed release (DR/EC) 40 mg PO DAILY Qty: 30 0RF Referrals Follow up/Referrals: Kai Stein DO [Primary Care Provider] - See instructions Activity Restrictions/Add. Instructions Additional Instructions/Restrictions: You have been evaluated in the ED for your complaints. You may follow-up with your PCP in the next 3 to 5 days. Please return to ED for any new or worsening symptoms. Please continue taking Mucinex as discussed. Clinical Impressions Clinical Impression: Upper respiratory infection, viral Stand Alone Forms Stand Alone Forms: Work/School Release Discharge ED Provider: Santi Kumari General Adult HPI General Chief complaint: Upper Respiratory Infection Stated complaint: weakness Time Seen by Provider: 08/04/23 07:09 History of Present Illness HPI narrative: 52-year-old male with past medical history significant for COPD presents today for evaluation concerning viral URI symptoms since Friday. Patient states he has had cough, congestion and rhinorrhea since that time and is also felt fatigued. He continues to tolerate oral intake without difficulty. Has had normal bowel movements and normal urinary output. Denies any abdominal pain, chest pain, shortness of breath, nausea, vomiting, fevers, chills or any other associated symptoms at this time. He does report multiple sick contacts in his home. Related Data Home Medications Medication Instructions Recorded Confirmed prochlorperazine maleate 10 mg mg PO 06/03/23 06/03/23 tablet Previous Rx's Medication Instructions Recorded pantoprazole 40 mg tablet,delayed 40 mg PO DAILY #30 tabs 06/02/23 release Allergies Allergy/AdvReac Type Severity Reaction Status Date / Time No Known Allergies Allergy Verified 06/03/23 14:00 [facility] Disclaimer: The information contained in this section may have been updated after the patient was seen, as this information can be updated by other users. Social History Smoking Status: Current every day smoker tobacco type: cigarettes packs per day: 1 alcohol intake: never substance use type: denies use current occupational status: employed Travel in the last 8 weeks: None household members: family housing: house current occupational exposures/hazards: No caffeine: Yes ROS Obtained: Yes All systems reviewed & no additional complaints except as documented Physical Exam General General appearance: alert and in no apparent distress Head Head exam: atraumatic and normocephalic Eye Eye exam: Present normal appearance, PERRL and EOMI ENT ENT exam: Present normal oropharynx and mucous membranes moist Neck Neck exam: Present full ROM; Absent meningismus Respiratory Respiratory exam: Absent respiratory distress, wheezes, stridor or accessory muscle use Cardiovascular Cardiovascular exam: Present normal rhythm Abdominal Exam Abdominal exam: Present soft; Absent distention, tenderness, guarding, rebound or rigidity Neurological Exam Neurological exam: Present alert, oriented X3 and CN II-XII intact; Absent motor sensory deficit Psychiatric Psychiatric exam: Present normal affect and normal mood Skin Skin exam: Present warm and dry Medical Decision Making Medical Records Medical records reviewed: Yes I reviewed the patient's medical records. Rizwan Inquiry Pt receiving controlled substance: No Rizwan was queried for this patient: No Vital Signs: 08/04/23 07:04 Temperature 98.0 F Temperature Source Oral Pulse Rate [Radial] 72 Respiratory Rate 18 Blood Pressure [Left Arm] 159/97 H Blood Pressure Mean [Left Arm] 117 Blood Pressure Source [Left Arm] Automatic Cuff Blood Pressure Position [Left Arm] Sitting 02 Sat by Pulse Oximetry 99 Oxygen Delivery Method Room Air Lab Data Lab Results 08/04/23 07:10: SARS-CoV-2 (PCR) Not detected, Influenza A Untype (PCR) Not detected, Influenza Type B (PCR) Not detected Orders (Tests/Meds): ED MEDICATIONS Discontinued Medications Generic Name Dose Route Start Last Admin Trade Name Dkq PRN Reason Stop Dose Admin Ibuprofen 800 mg 08/04/23 07:40 08/04/23 07:46 Ibuprofen 400 Mg Tablet PO 08/04/23 07:41 800 mg ONCE ONE Administration ORDERS Category Date Time Status Rapid PCR Covid and Flu A/B Stat Lab 08/04/23 07:10 Completed Medical Decision Narrative: 52-year-old male with past medical history significant for COPD presents today for evaluation concerning viral URI symptoms since Friday. Patient states he has had cough, congestion and rhinorrhea since that time and is also felt fatigued. On assessment, patient is medically stable and in no acute distress. Afebrile. Physical exam was unremarkable. His chest is clear to auscultation bilaterally. Oropharynx is clear. Left tympanic membrane with mild effusion. Abdomen soft nondistended and nontender to palpation. Other physical exam findings unremarkable. Differential diagnoses include not limited to COVID, influenza, RSV, COPD exacerbation, pneumonia, pleural effusion, and others. Patient was swabbed for COVID and influenza. His swabs were negative. On reassessment he remains medically stable and in no acute distress. Remains to be at his baseline. I discussed his ED workup results and likely diagnosis of an upper viral respiratory infection given his presenting symptoms. No antibiotics are indicated at this time. Provided him with return ED precautions and instructions concerning PCP follow-up. He verbalized understanding and agreement and was subsequently discharged home hemodynamically stable and in no acute distress. Critical Care Critical Care Time Critical Care Time: No
[2023-08-04 07:22] LABS: Coronavirus 19, PCR Not Detected (NotDetected); Influenza A, PCR Not Detected (NotDetected); Influenza B, PCR Not Detected (NotDetected)
[2023-08-04] MEDS: IBUPROFEN 400 MG TABLET 800 MG PO (07:46)
[2023-08-04 08:20] VITALS: BP 144/89; PULSE 74; RESP 18; TEMP 36.7; O2SAT 100
== END 2023-08-04 08:20 | disposition home or self-care (01) ==
PROVIDERS: Emergency Provider Emergency Medicine; PCP Internal Medicine
DX: J06.9 Acute upper respiratory infection, unspecified (principal); R53.1 Weakness; R53.83 Other fatigue; J44.9 Chronic obstructive pulmonary disease, unspecified; R05.9 Cough, unspecified; R09.81 Nasal congestion; J34.89 Other specified disorders of nose and nasal sinuses; F17.210 Nicotine dependence, cigarettes, uncomplicated
CPT/HCPCS: 87636; 99283

== ENCOUNTER 2024-07-21 16:34 | Emergency (ER) | payer OTHER, SELFPAY ==
[2024-07-21 17:10] VITALS: BP 141/67; PULSE 66; RESP 19; TEMP 36.8; O2SAT 98; BMI 19.6
--- NOTE | 2024-07-21 17:27 | EXP.UTC ---
Discharge Plan Disposition Patient Disposition: Home, Self-Care Condition: Good Prescriptions Prescriptions: New ondansetron 4 mg tablet,disintegrating 4 mg PO Q8H PRN (Reason: nausea and vomiting) Qty: 10 0RF No Action prochlorperazine maleate 10 mg tablet PO pantoprazole 40 mg tablet,delayed release (DR/EC) 40 mg PO DAILY Qty: 30 0RF Referrals Follow up/Referrals: Kai Stein DO [Primary Care Provider] - See instructions Activity Restrictions/Add. Instructions Additional Instructions/Restrictions: Drink extra fluids with and between meals. If you have difficulty drinking, try very small amounts of water or suck on ice chips. ? Avoid fruit juices, as these do not replace minerals and can actually increase diarrhea. ? Children and adults can use sports drinks to replenish electrolytes. Younger children and infants should use products formulated for children, like oral rehydration solutions. ? Eat food in small amounts and let your stomach recover. ? Get lots of rest. You may feel tired or weak. ? No greasy or fried foods for the next 24-48 hours BRAT diet Bananas Rice Apples and Tim[place]lane ? Make sure to drink plenty of liquids ? Return if needed ? Straight to ER if any life threatening symptoms ? Zofran as prescribed ? Follow up with family doctor in the next 48-72 hours if no improvement or any worsening of symptoms Clinical Impressions Clinical Impression: Nausea & vomiting Stand Alone Forms Stand Alone Forms: Work/School Release Instructions Patient Instructions: Ondansetron, Nausea and Vomiting-Adult, Diarrhea Print Language Print Language: Citizen Of [place] Discharge ED Provider: Kath Powers [facility] HPI General Stated complaint: exp to flu-wants tested Mode of Arrival: Ambulatory Source of Information: Patient Limitations: No Limitations Time Seen by Provider: 07/21/24 17:27 Description of Symptoms (Recalled from Triage Doc. by RN): PATIENT C/O SINUS PRESSURE AND RIGHT EAR PAIN HEENT Symptoms (Recalled from RN notes): Yes Resp Symptoms (Recalled from RN notes): No Skin Symptoms (Recalled from RN notes): No MS Symptoms (Recalled from RN notes): No Functional Status (Recalled from RN notes): WNL History of Present Illness Provider Complaint: Patient states that flu is going around at work and he has been having some sinus drainage that makes him sick at his stomach States yesterday at work the drainage made him sick at his stomach and he had some vomiting and diarrhea, States that he has still had some nausea but denies fever, denies chills, denies flu like symptoms but work wanted him to get looked at States that he feels fine but the nausea States he is not having any flu like symptoms and does not want tested for flu Related Data Home Medications ?Medication ?Instructions ?Recorded ?Confirmed prochlorperazine maleate 10 mg mg PO 06/03/23 06/03/23 tablet Previous Rx's ?Medication ?Instructions ?Recorded pantoprazole 40 mg tablet,delayed 40 mg PO DAILY #30 tabs 06/02/23 release ondansetron 4 mg disintegrating 4 mg PO Q8H PRN nausea and 07/21/24 tablet vomiting #10 tabs Allergies Allergy/AdvReac Type Severity Reaction Status Date / Time No Known Allergies Allergy Verified 06/03/23 14:00 Worker's Comp Is this a Worker's Comp case?: No [facility] Disclaimer: The information contained in this section may have been updated after the patient was seen, as this information can be updated by other users. Social History Smoking Status: Current every day smoker tobacco type: cigarettes packs per day: 1 alcohol intake: never substance use type: denies use current occupational status: employed Travel in the last 8 weeks: None household members: family housing: house current occupational exposures/hazards: No caffeine: Yes Have you lived/traveled outside [place] in past 30 days?: No Contact w/someone who lives/traveled outside [place] past 30 days?: No Exposure to someone with infectious disease in past 14 days?: No Do you have a fever (greater than 100.4 F or 38 C)?: No Have you tested positive for COVID-19: No Exposed to someone with COVID-19 in past 14 days?: No Do you have a sore throat?: No Do you have a cough?: No Do you have any weakness?: No Do you have any diarrhea?: No Are you experiencing any unusual bleeding?: No Do you have any muscle aches/pain?: No Do you have any abdominal pain?: No Are you experiencing loss of taste or smell?: No ROS Obtained: Yes All systems reviewed & no additional complaints except as documented and Yes Systems reviewed as appropriate & no additional complaints except as documented Constitutional Constitutional: Reports system reviewed and no additional complaints, except as documented, Reports as per HPI, Denies body ache, Denies chills, Denies fever(s) and Denies headache(s) ENT Ears, Nose, Mouth, and Throat: Reports system reviewed and no additional complaints, except as documented, Reports as per HPI, Denies headache(s), Reports nasal congestion and Reports nasal discharge Cardiovascular Cardiovascular: Reports system reviewed and no additional complaints, except as documented and Reports as per HPI Respiratory Respiratory: Reports system reviewed and no additional complaints, except as documented and Reports as per HPI Gastrointestinal Gastrointestingal: Reports system reviewed and no additional complaints, except as documented, as per HPI, diarrhea, nausea and vomiting; Denies abdominal pain Neurologic Neurologic: Denies headache(s) Physical Exam General General appearance: alert and in no apparent distress ENT ENT exam: Present normal exam, normal oropharynx, mucous membranes moist and TM's normal bilaterally Respiratory Respiratory exam: Present normal lung sounds bilaterally; Absent respiratory distress or wheezes Cardiovascular Cardiovascular exam: Present regular rate, normal rhythm and normal heart sounds Abdominal Exam Abdominal exam: Present soft and normal bowel sounds; Absent distention, tenderness, guarding or rebound Neurological Exam Neurological exam: Present alert, oriented X3 and normal gait Medical Decision Making Medical Records Screening: Per USPSTF and CDC recommendations, given the prevalence of disease in our region, it is our hospital?s policy to screen for HIV and viral Hepatitis for all patients aged 18 and over and those with ongoing risk factors. Rizwan Inquiry Pt receiving controlled substance: No Rizwan was queried for this patient: No Vital Signs: 07/21/24 17:10 Temperature 98.3 F Temperature Source Oral Pulse Rate [Left Brachial] 66 Respiratory Rate 19 Blood Pressure [Left Arm] 141/67 H Blood Pressure Mean [Left Arm] 91 Blood Pressure Source [Left Arm] Automatic Cuff Blood Pressure Position [Left Arm] Sitting 02 Sat by Pulse Oximetry 98 Oxygen Delivery Method Room Air
[2024-07-21 17:34] VITALS: BP 0/0; PULSE 117; RESP 22; TEMP 36.8; O2SAT 98
== END 2024-07-21 17:38 | disposition home or self-care (01) ==
PROVIDERS: Emergency Provider Nurse Practitioner; PCP Internal Medicine
DX: R11.2 Nausea with vomiting, unspecified (principal)
CPT/HCPCS: 99212; G0381

== ENCOUNTER 2024-09-26 12:13 | Emergency (ER) | payer SELFPAY ==
--- NOTE | 2024-09-26 12:15 | HMH.EDGENADL ---
Discharge Plan Disposition Patient Disposition: Home, Self-Care Prescriptions Prescriptions: New methocarbamol 750 mg tablet 1,500 mg PO TID Qty: 90 0RF lidocaine 5 % adhesive patch,medicated 1 patch topical DAILY Qty: 15 0RF Rx Instructions: leave on most painful area for up to 12 hrs ondansetron 4 mg tablet,disintegrating 4 mg PO Q6H PRN (Reason: nausea and vomiting) Qty: 12 0RF Referrals Follow up/Referrals: Pascual Jalloh DO [Staff Physician] - See instructions Provider,Referral, [Primary Care Provider] - See instructions Activity Restrictions/Add. Instructions Additional Instructions/Restrictions: Follow-up with primary care doctor (Dr. Jalloh). Information has been given above. Take Tylenol 1000 mg every 6 hours (no more than 400 mg during a 24-hour period) and ibuprofen 400 mg every 6 hours for pain. Take Robaxin as needed for muscle relaxation. Use lidocaine patches as well for pain. Take Zofran as needed for nausea and vomiting. Please return the emerged part with any new, concerning, worsening symptoms. Clinical Impressions Clinical Impression: Acute pain of right hip Instructions Patient Instructions: DI for Low Back Pain Print Language Print Language: Chadian Discharge ED Provider: Bear Ambrosio General Adult HPI General Chief complaint: Back Pain/Injury Stated complaint: AO 09/25/24 Back Pain/Shooting down leg Time Seen by Provider: 09/26/24 12:15 Mode of Arrival: Ambulatory Source of Information: Patient Limitations: No Limitations History of Present Illness HPI narrative: This is a 54-year-old male with a past medical history of chronic back pain and COPD who presents with right hip pain. States that he was doing lawn care yesterday whenever he slipped and fell backwards while he was weed eating. Landed on his right side. Reports right hip pain since then. Has been ambulatory. States that while he was lying on his right side it felt like it was shooting down his right leg at the time. Denies any worsening back pain. Of note, patient also reports chronic right lower quadrant abdominal pain and intermittent nausea/vomiting. States that he has had extensive workup for this in the past as well as endoscopy which did not reveal any definitive pathology. States that he is able to tolerate oral intake however will occasionally just feel very nauseous and throw up. Has not been taking any medications for this at home. Denies any worsening of the symptoms today. Related Data Previous Rx's ?Medication ?Instructions ?Recorded lidocaine 5 % topical patch 1 patch topical DAILY #15 ea 09/26/24 methocarbamol 750 mg tablet 1,500 mg (2 x 750 mg) PO TID #90 09/26/24 tabs ondansetron 4 mg disintegrating 4 mg PO Q6H PRN nausea and 09/26/24 tablet vomiting #12 tabs Allergies Allergy/AdvReac Type Severity Reaction Status Date / Time No Known Allergies Allergy Verified 09/26/24 12:27 [facility] Disclaimer: The information contained in this section may have been updated after the patient was seen, as this information can be updated by other users. Social History Smoking Status: Current every day smoker tobacco type: cigarettes packs per day: 1 alcohol intake: never substance use type: denies use current occupational status: employed Travel in the last 8 weeks: None household members: family housing: house current occupational exposures/hazards: No caffeine: Yes Have you lived/traveled outside [place] in past 30 days?: No Contact w/someone who lives/traveled outside US past 30 days?: No Exposure to someone with infectious disease in past 14 days?: No Do you have a fever (greater than 100.4 F or 38 C)?: No Have you tested positive for COVID-19: No Exposed to someone with COVID-19 in past 14 days?: No Do you have a sore throat?: No Do you have a cough?: No Do you have any weakness?: No Do you have any diarrhea?: No Are you experiencing any unusual bleeding?: No Do you have any muscle aches/pain?: No Do you have any abdominal pain?: No Are you experiencing loss of taste or smell?: No Other Medical History Have you received the Flu Vaccine for this season: No Have you received the Pneumonia Vaccine: No ROS Obtained: Yes All systems reviewed & no additional complaints except as documented Physical Exam General General appearance: alert and in no apparent distress Eye Eye exam: Present normal appearance, PERRL and EOMI Respiratory Respiratory exam: Present normal lung sounds bilaterally; Absent respiratory distress Cardiovascular Cardiovascular exam: Present regular rate and normal rhythm Abdominal Exam Abdominal exam: Present soft; Absent distention, tenderness, guarding or rebound Extremities Exam Extremities exam: Present other (RLE: Tenderness to the right hip/lateral femur. No deformity. Neurovascularly intact distally.) Back Exam Back exam: Present normal inspection and full ROM; Absent tenderness, CVA tenderness (R), CVA tenderness (L), muscle spasm, paraspinal tenderness or vertebral tenderness Neurological Exam Neurological exam: Present alert, oriented X3 and normal gait; Absent motor sensory deficit Skin Skin exam: Present warm and dry Medical Decision Making Medical Records Medical records reviewed: Yes I reviewed the patient's medical records. Screening: Per USPSTF and CDC recommendations, given the prevalence of disease in our region, it is our hospital?s policy to screen for HIV and viral Hepatitis for all patients aged 18 and over and those with ongoing risk factors. MR Comment: Emergency department note from 08/04/2023 notable for presentation for viral URI. Significant for patient's past medical history of COPD. Additionally, family medicine clinic visit note from 06/03/2023 noted patient's past medical history of chronic abdominal pain. Was following with GI at the time. [place] Inquiry Pt receiving controlled substance: No Vital Signs: 09/26/24 12:28 Temperature 98.6 F Temperature Source Oral Pulse Rate [Radial] 69 Respiratory Rate 20 Blood Pressure [R Arm] 156/83 H Blood Pressure Mean [R Arm] 107 Blood Pressure Source [R Arm] Automatic Cuff Blood Pressure Position [R Arm] Sitting 02 Sat by Pulse Oximetry 97 Oxygen Delivery Method Room Air Orders (Tests/Meds): ED MEDICATIONS Discontinued Medications Generic Name Dose Route Start Last Admin Trade Name [place] PRN Reason Stop Dose Admin Acetaminophen 1,000 mg 09/26/24 12:26 09/26/24 12:35 Acetaminophen 500mg Tab PO 09/26/24 12:27 1,000 mg ONCE ONE Administration Ibuprofen 400 mg 09/26/24 12:26 09/26/24 12:35 Ibuprofen 400 Mg Tablet PO 09/26/24 12:27 400 mg ONCE ONE Administration Lidocaine 1 each 09/26/24 12:51 Lidocaine 5% Transdermal Patch TD 09/26/24 12:52 ONCE ONE Methocarbamol 1,500 mg 09/26/24 12:26 09/26/24 12:35 Methocarbamol 500mg Tablet PO 09/26/24 12:27 1,500 mg ONCE ONE Administration ORDERS Category Date Time Status Femur XR right 2 views [XR femur RT 2V] Stat Exams 09/26/24 12:26 Taken Hip XR right minimum 2 views [XR hip RT 2-3V w/pelvis] Exams 09/26/24 12:26 Taken Stat Medical Decision Narrative: In summary, this COPD and chronic back pain presents to the emergency department today with right hip/femur pain after a fall yesterday. On initial evaluation patient is afebrile, hemodynamically stable, nontoxic-appearing, ambulatory with no obvious deformity. Neurologically intact. Differential diagnosis includes but is not limited to disc herniation, sciatica, soft tissue injury, fracture. Based on these concerns, I ordered x-ray imaging of the pelvis, right hip, right femur. Considered CT of the lumbar spine however patient was nontender to his back and nontender to his flank as well. No clinical evidence of cord compression syndrome. Neurologically intact with no red flag symptoms. Regarding his complaint of chronic abdominal pain, there has been no worsening of the symptoms. Given his extensive workup in the past with no definitive pathology and no acute component to his symptoms, will defer further evaluation and treatment to PCP. Patient stated that he does not have a primary care doctor. Will provide him with a referral. Patient received Tylenol, ibuprofen, Robaxin for treatment. XR personally interpreted demonstrates no acute osseous pathology. On reassessment in stable condition in no acute distress, ambulatory. He is to follow-up with PCP. Provided with Zofran to take as needed for nausea and vomiting as well as instructions for Tylenol/ibuprofen and prescriptions for Robaxin/lidocaine patches for pain relief.. Critical Care Critical Care Time Critical Care Time: No
--- NOTE | 2024-09-26 12:20 | PC.NURSE ---
DR GARCIA AT BEDSIDE
--- NOTE | 2024-09-26 12:26 | XR_ITS ---
PROCEDURE INFORMATION: Exam: XR Right Femur Exam date and time: 09/26/2024 12:28 PM Age: 54 years old Clinical indication: Injury or trauma; Fall; Blunt trauma; Hip; Right; Additional info: Fall x yesterday, R hip/femur pain TECHNIQUE: Imaging protocol: Radiologic exam of the right femur. Views: 2 views. COMPARISON: CR XR HIP RT 2-3V W/PELVIS 09/26/2024 12:26 PM FINDINGS: Bones/joints: There is no evidence of acute fracture.There is no evidence of malalignment or dislocation. Soft tissues: Unremarkable. IMPRESSION: There is no evidence of acute fracture.There is no evidence of malalignment or dislocation.
--- NOTE | 2024-09-26 12:26 | XR_ITS ---
PROCEDURE INFORMATION: Exam: XR Right Hip Exam date and time: 09/26/2024 12:26 PM Age: 54 years old Clinical indication: Injury or trauma; Fall; Blunt trauma (contusions or hematomas); Right; Hip; Additional info: Fall x yesterday, R hip/femur pain TECHNIQUE: Imaging protocol: Radiologic exam of the right hip. Views: 2 or 3 views hip with pelvis when performed. COMPARISON: CT ABDOMEN PELVIS W CON 03/14/2023 9:34 AM FINDINGS: Bones/joints: There is no evidence of acute fracture.There is no evidence of malalignment or dislocation. Mild degenerative changes in both hips Soft tissues: Unremarkable. IMPRESSION: There is no evidence of acute fracture.There is no evidence of malalignment or dislocation.
[2024-09-26 12:28] VITALS: BP 156/83; PULSE 69; RESP 20; TEMP 37; O2SAT 97; BMI 24.3
[2024-09-26] MEDS: METHOCARBAMOL 500MG TABLET 1500 MG PO (12:35)
[2024-09-26] MEDS: IBUPROFEN 400 MG TABLET PO (12:35)
[2024-09-26] MEDS: ACETAMINOPHEN 500MG TAB 1000 MG PO (12:35)
--- NOTE | 2024-09-26 12:36 | PC.NURSE ---
Patient in radiology at this time.
--- NOTE | 2024-09-26 12:46 | PC.NURSE ---
Patient returned from radiology. Medicated as documented. Attached to V/S machine. Voices no questions or concerns at this time.
[2024-09-26] MEDS: LIDOCAINE 5% TRANSDERMAL PATCH 1 EACH TD (13:01)
[2024-09-26 13:18] VITALS: BP 150/82; PULSE 62; RESP 20; TEMP 37; O2SAT 97
== END 2024-09-26 13:19 | disposition home or self-care (01) ==
PROVIDERS: Emergency Provider Student in an Organized Health Care Education/Training Program
DX: M25.551 Pain in right hip (principal); W01.10XA Fall on same level from slipping, tripping and stumbling with subsequent striking against unspecified object, initial encounter
CPT/HCPCS: 99284; 73502; 73552

== ENCOUNTER 2025-04-12 07:55 | Emergency (ER) | payer SELFPAY ==
[2025-04-12 08:00] VITALS: BP 149/91; PULSE 68; RESP 18; TEMP 36.6; O2SAT 99; BMI 19.8
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
--- OUTSIDE RECORDS SUMMARY | 2025-04-12 08:11 | XMS_ITS | Clinical Summary ---
Author Organization Healthcare Address [facility] [place] [address] Care Team Providers Care Orthopedic Shoe Fitter Name Role Phone Cameron Treadwell MD Primary Care Provider [phone] Family History Medical History Relation Name Comments COPD Mother Conversions - Other Mother hypoglyc emia Relation Name Status Comments Mother Social History Tobacco Use Types Packs/Day Years Used Date Smoking Tobacco: Former Sex and Gender Information Value Date Recorded Sex Assigned at Not on file Legal Sex Male 6:20 PM EDT Gender Identity Not on file Sexual Orientation Not on file Last Filed Vital Signs Vital Sign Reading Time Taken Comments Blood Pressure - - Pulse - - Temperature - - Respiratory Rate - - Oxygen Saturation - - Inhaled Oxygen Concentration - - Weight 59 kg (130 lb 0.1 oz) 08/30/2016 9:02 AM EDT Height 172.7 cm (5' 8 ) 08/30/2016 9:02 AM EDT Body Mass Index 19.77 08/30/2016 9:02 AM EDT Plan of Treatment Not on file Care Teams Orthopedic Shoe Fitter Relationship Specialty Start Date End Date Cameron Treadwell MD [address] [place] [address] PCP - General 10/27/20
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
[2025-04-12 08:25] LABS: Hematocrit 41.7 % (42.0-52.0); Hemoglobin 14.0 g/dL (14.1-18.0); Immature Granulocytes % 0.4 %; Mean Corpuscular HGB Conc 33.6 g/dL (31.8-35.4); Mean Corpuscular Hemoglobin 32.5 pg (27.0-31.2); Mean Corpuscular Volume 96.8 fl (80-94); Nucleated Red Blood Cells % 0 %; Platelet Count 341 K/mm3 (142-424); Red Blood Count 4.31 M/mm3 (4.60-6.20); Red Cell Distribution Width-SD 44.1 fL; White Blood Count 9.5 K/mm3 (4.8-10.8)
[2025-04-12] MEDS: METHOCARBAMOL 500MG TABLET 1000 MG PO (08:26)
[2025-04-12] MEDS: ACETAMINOPHEN 500MG TAB 1000 MG PO (08:26)
[2025-04-12 08:37] LABS: Alanine Aminotransferase 16 U/L (12-78); Albumin Level 3.8 g/dl (3.5-5.0); Albumin/Globulin Ratio 1.1 (1.1-1.8); Alkaline Phosphatase 75 U/L (38-126); Anion Gap 13.3 mEq/L (5-15); Aspartate Amino Transferase 32 U/L (17-59); Bilirubin,Total 0.5 mg/dl (0.2-1.3); Blood Urea Nitrogen 18 mg/dl (9-20); Calcium 8.9 mg/dl (8.4-10.2); Carbon Dioxide 25 mmol/L (22.0-30.0); Chloride 103 mmol/L (98-107); Creatinine Clearance Estimated 70 mL/min (50-200); Creatinine,Serum 1.00 mg/dl (0.66-1.25); Estimated Glomerular Filt Rate 78 ml/min (>60); GFR (African American) 94 ML/MIN (>60); Globulin 3.4 g/dL (1.3-3.2); Glucose 114 mg/dl (74-100); Potassium 4.3 mmoL/L (3.5-5.1); Sodium 137 mmol/L (136-145); Total Protein,Serum 7.2 g/dl (6.3-8.2)
[2025-04-12] MEDS: SODIUM CHLORIDE 0.9% 10ML SYR (RAD ONLY) 10 ML IV (09:05)
[2025-04-12] MEDS: IOPAMIDOL-370 (76%);100ML BOTTLE 80 ML IV (09:05)
[2025-04-12] MEDS: 0.9 % SODIUM CHLORIDE 50 ML VIAL 40 ML IV (09:05)
[2025-04-12 09:31] VITALS: BP 139/87; PULSE 49; O2SAT 98
[2025-04-12 11:35] VITALS: BP 139/87; PULSE 68; RESP 18; TEMP 36.6; O2SAT 98
== END 2025-04-12 11:37 | disposition home or self-care (01) ==
PROVIDERS: Emergency Provider Emergency Medicine
DX: R10.31 Right lower quadrant pain (principal); R10.A1 Flank pain, right side; M54.59 Other low back pain; K59.00 Constipation, unspecified; V29.99XA Rider (driver) (passenger) of other motorcycle injured in unspecified traffic accident, initial encounter
CPT/HCPCS: 70450; 71250; 72125; 72131; 74174; 80053; 85025; 99283; 99285; Q9967

== ENCOUNTER 2025-04-18 11:57 | Emergency (ER) | payer SELFPAY ==
[2025-04-18 13:53] VITALS: BP 156/85; PULSE 64; RESP 18; TEMP 36.6; O2SAT 100; BMI 19.8
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
[2025-04-18 16:00] VITALS: BP 156/85; PULSE 64; RESP 18; TEMP 36.6; O2SAT 100
== END 2025-04-18 16:04 | disposition home or self-care (01) ==
PROVIDERS: Emergency Provider Student in an Organized Health Care Education/Training Program; PCP Family Medicine
DX: R11.2 Nausea with vomiting, unspecified (principal); K59.00 Constipation, unspecified
CPT/HCPCS: 99282